=== PATIENT | male | born 2000 | race Caucasian/White ===

== ENCOUNTER 2019-01-07 12:21 | Emergency (ER) | payer SELFPAY ==
[2019-01-07 12:48] VITALS: BP 132/80; PULSE 59; RESP 16; TEMP 96.8; O2SAT 98
== END 2019-01-07 13:00 | disposition home or self-care (01) | DRG 153 ==
LOC: ED 12:21
DX: J00 Acute nasopharyngitis [common cold] (principal)
CPT/HCPCS: 99282

== ENCOUNTER 2019-01-18 14:28 | Emergency (ER) | payer SELFPAY ==
[2019-01-18 14:53] VITALS: RESP 20; TEMP 98.2
[2019-01-18] MEDS ORDERED: TDAP VACCINE 0.5 ML SUS IM ONE ×2 (15:05→15:07)
[2019-01-18 15:21] VITALS: BP 114/67; PULSE 58; O2SAT 99
== END 2019-01-18 15:27 | disposition home or self-care (01) | DRG 605 ==
LOC: ED 14:28
DX: S80.212A Abrasion, left knee, initial encounter (principal); W19.XXXA Unspecified fall, initial encounter; S80.02XA Contusion of left knee, initial encounter
CPT/HCPCS: 73562; 90471; 90715; 99282; 99283

== ENCOUNTER 2019-06-01 15:40 | Emergency (ER) | payer SELFPAY ==
[2019-06-01 15:45] VITALS: BP 143/77; PULSE 72; RESP 18; TEMP 97.7; O2SAT 100
== END 2019-06-01 16:19 | disposition home or self-care (01) | DRG 159 ==
LOC: ED 15:40
DX: K04.7 Periapical abscess without sinus (principal); K08.89 Other specified disorders of teeth and supporting structures
CPT/HCPCS: 99282